=== PATIENT | female | born 1985 | race Caucasian/White ===

== ENCOUNTER 2018-11-27 17:44 | Observation (INO) | payer MEDICAID ==
[2018-11-27] MEDS ORDERED: NS 1,000 ML IV ONE (18:34)
[2018-11-27 18:38] LABS: PLATELET COUNT 149 10^3/uL (150-400)
--- NOTE | 2018-11-27 18:47 | EDPHY ---
H & P Stated Complaint: Mid sternal pain radiating to left arm for 4 hours. Time Seen by Provider: 11/27/18 18:31 HPI/ROS: CHIEF COMPLAINT: Chest pain HISTORY OF PRESENT ILLNESS: Patient is a 32-year-old female who comes to the emergency department complaining of midsternal chest pain for the last 4 hr. This summer she suffered a out of hospital cardiac arrest in the setting of methamphetamine abuse and had runs of ventricular fibrillation and suffered from ischemic brain injury. She spent several days in the ICU but eventually left the hospital AMA. A few weeks later she presented to a different hospital with chest pain and elevated troponin. She had a coronary artery catheterization at that time that revealed a left anterior descending coronary artery 99% occlusion likely a dissection as well as a diagonal artery 95% occlusion also likely a dissection. No stents were placed due to fear of worsening the dissection. She was placed on metoprolol, Plavix, aspirin and nitroglycerin. She is here in [place] now because she is at the [employer] [place]. She states that her pain began while at rest. No shortness of breath. No radiation. She does feel slightly nauseous. Severity: Moderate Modifying factors: None REVIEW OF SYSTEMS: Constitutional: denies: chills, fever, recent illness, recent injury EENTM: denies: blurred vision, double vision, nose congestion Respiratory: denies: cough, shortness of breath Cardiac: See HPI denies: irregular heart rate, lightheadedness, palpitations Gastrointestinal/Abdominal: denies: abdominal pain, diarrhea, nausea, vomiting, blood streaked stools Genitourinary: denies: dysuria, frequency, hematuria, pain Musculoskeletal: denies: joint pain, muscle pain Skin: denies: lesions, rash, jaundice, bruising Neurological: denies: headache, numbness, paresthesia, tingling, dizziness, weakness Hematologic/Lymphatic: denies: blood clots, easy bleeding, easy bruising Immunologic/allergic: denies: HIV/AIDS, transplant 10 systems reviewed and negative except as noted EXAM: GENERAL: Well-appearing, well-nourished and in no acute distress. HEAD: Atraumatic, normocephalic. EYES: Pupils equal round and reactive to light, extraocular movements intact, sclera anicteric, conjunctiva are normal. ENT: TMs normal, nares patent, oropharynx clear without exudates. Moist mucous membranes. NECK: Normal range of motion, supple without lymphadenopathy or JVD. LUNGS: Breath sounds clear to auscultation bilaterally and equal. No wheezes rales or rhonchi. HEART: Regular rate and rhythm without murmurs, rubs or gallops. ABDOMEN: Soft, nontender, normoactive bowel sounds. No guarding, no rebound. No masses appreciated. BACK: No CVA tenderness, no spinal tenderness, step-offs or deformities EXTREMITIES: Normal range of motion, no pitting or edema. No clubbing or cyanosis. NEUROLOGICAL: Cranial nerves II through XII grossly intact. Normal speech, normal gait. 5/5 strength, normal movement in all extremities, normal sensation , normal reflexes PSYCH: Normal mood, normal affect. SKIN: Warm, dry, normal turgor, no visible rashes or lesions. Source: Patient, Old records Exam Limitations: No limitations - Personal History Current Tetanus Diphtheria and Acellular Pertussis (TDAP): Yes - Medical/Surgical History Hx Asthma: No Hx Chronic Respiratory Disease: No Hx Diabetes: No Hx Cardiac Disease: Yes Hx Renal Disease: No Hx Cirrhosis: No Hx Alcoholism: No Hx HIV/AIDS: No Hx Splenectomy or Spleen Trauma: No Other PMH: - May 2018. - Family History Significant Family History: No pertinent family hx - Social History Smoking Status: Current every day smoker Alcohol Use: Sober Drug Use: Other Constitutional: Initial Vital Signs Temperature (C) 36.6 C 11/27/18 17:53 Heart Rate 87 11/27/18 17:53 Respiratory Rate 18 11/27/18 17:53 Blood Pressure 120/85 H 11/27/18 17:53 O2 Sat (%) 98 11/27/18 17:53 O2 Delivery Mode Room Air Allergies/Adverse Reactions: latex Allergy (Verified 11/27/18 17:57) morphine Allergy (Verified 11/27/18 19:51) Home Medications: Medication Instructions Recorded Aspirin EC [Aspirin EC 81 mg (*)] 81 mg PO DAILY 11/27/18 Clopidogrel Bisulfate [Plavix (*)] 75 mg PO DAILY 11/27/18 Metoprolol Tartrate [Lopressor 25 25 mg PO BID 11/27/18 mg (*)] Nitroglycerin [Nitrostat 0.4 mg 0.4 mg SL Q5M PRN 11/27/18 (*)] Pantoprazole Sodium [Protonix 40mg 40 mg PO DAILY 30 Days #30 tab 11/28/18 (*)] Medical Decision Making - Diagnostics EKG Interpretation: An EKG obtained and was read and documented in trace view. Please see trace view for full reading and report. Sinus rhythm, no acute ischemic changes Imaging: Discussed imaging studies w/ scalloper Radiologist ED Course/Re-evaluation: She states that she has not taken her aspirin and nitroglycerin today. Patient' s lab work is reassuring. Will admit for continued workup 7:30 p.m. discussed case with Dr. Licona who will admit. Have paged Cardiology as well. 7:33 p.m. I discussed the case Dr. Lonnie Francis who will consult. He agrees with the plan thus far. Differential Diagnosis: Partial list of the Differential diagnosis considered include but were not limited to; acute coronary disease, dissection, anxiety and although unlikely based on the history and physical exam, I also considered PE, pneumonia, pneumothorax, pericardial effusion. - Data Points Laboratory Results: Laboratory Results 11/27/18 18:25 11/27/18 18:25 Medications Given: Discontinued Medications Acetaminophen (Tylenol) 650 mg PO Q6HRS PRN PRN Reason: Pain, Mild/Fever, Can Take PO Stop: 05/26/19 20:00 Last Admin: 11/28/18 03:21 Dose: 650 mg Aspirin (Aspirin) 324 mg PO EDNOW ONE Stop: 11/27/18 19:16 Last Admin: 11/27/18 19:19 Dose: 324 mg Aspirin Buffered (Aspirin Ec) 81 mg PO DAILY [facility] Stop: 05/27/19 08:59 Last Admin: 11/28/18 08:39 Dose: 81 mg Clopidogrel Bisulfate (Plavix) 75 mg PO DAILY [facility] Stop: 05/27/19 08:59 Last Admin: 11/28/18 08:39 Dose: 75 mg Hydromorphone HCl (Dilaudid) 0.5 mg IVP EDNOW ONE Stop: 11/27/18 19:37 Last Admin: 11/27/18 19:42 Dose: 0.5 mg Hydromorphone HCl (Dilaudid) 0.2 - 0.4 mg IVP Q4H PRN PRN Reason: Pain, Severe Unable to Take PO Stop: 12/07/18 20:22 Last Admin: 11/28/18 12:02 Dose: 0.4 mg Sodium Chloride (Ns) 1,000 mls @ 0 mls/hr IV EDNOW ONE; Wide Open PRN Reason: Protocol Stop: 11/27/18 18:35 Last Admin: 11/27/18 18:57 Dose: 1,000 mls Metoprolol Tartrate (Lopressor) 25 mg PO BID [facility] Stop: 05/26/19 20:59 Last Admin: 11/28/18 08:39 Dose: 25 mg Nitroglycerin (Nitrostat) 0.4 mg SL Q5M PRN PRN Reason: Chest Pain Last Admin: 11/27/18 19:30 Dose: 0.4 mg Nitroglycerin (Nitrostat) 0.4 mg SL Q5M PRN PRN Reason: Chest Pain Stop: 05/26/19 20:00 Last Admin: 11/28/18 03:26 Dose: 0.4 mg Pantoprazole Sodium (Protonix) 40 mg PO DAILY [facility] Stop: 05/27/19 14:29 Last Admin: 11/28/18 14:44 Dose: 40 mg Promethazine HCl (Phenergan) 12.5 mg IVP EDNOW ONE Stop: 11/27/18 18:57 Last Admin: 11/27/18 18:58 Dose: 12.5 mg Promethazine HCl (Phenergan) 6.25 mg PO Q6HRS PRN PRN Reason: Nausea/Vomiting, Use 2nd Stop: 05/27/19 03:49 Last Admin: 11/28/18 04:29 Dose: 6.25 mg Point of Care Test Results: Chemistry 11/27/18 18:30 POC Troponin I 0.00 ng/mL ng/mL (0.00-0.08) Departure - Departure Disposition: [facility] Acute Clinical Impression: Chest pain Qualifiers: Chest pain type: unspecified Qualified Code(s): R07.9 - Chest pain, unspecified Condition: Good
[2018-11-27] MEDS ORDERED: PROMETHAZINE HCL 25 MG/ML INJ ONE (18:52)
[2018-11-27 18:53] LABS: INR 1.11 (0.83-1.16); PROTIME(PATIENT) 14.5 SEC (12.0-15.0)
--- NOTE | 2018-11-27 18:55 | CPEKG ---
Test Reason : OPEN Blood Pressure : / mmHG Vent. Rate : 063 BPM Atrial Rate : 061 BPM P-R Int : 122 ms QRS Dur : 082 ms QT Int : 407 ms P-R-T Axes : 076 056 049 degrees QTc Int : 417 ms Sinus rhythm Confirmed by Galileo Morrow ([id number]) on 11/27/2018 6:55:35 PM Referred By: PHYSICIAN ED Confirmed By:Galileo Morrow
[2018-11-27] MEDS ORDERED: PROMETHAZINE HCL 25 MG/ML INJ IVP ONE (18:56)
[2018-11-27] MEDS ORDERED: ASPIRIN 81 MG CHEWABLE TAB PO ONE (19:15)
[2018-11-27] MEDS: NITROGLYCERIN 0.4 MG BTL SL PRN ×3 (19:20→19:30)
[2018-11-27] MEDS ORDERED: HYDROmorphONE/DILAUDID 2 MG/ML INJ IVP ONE (19:36)
[2018-11-27] MEDS ORDERED: HYDROmorphONE/DILAUDID 1 MG/ML INJ ONE (19:39)
[2018-11-27] MEDS ORDERED: ACETAMINOPHEN 325 MG TAB PO PRN (20:01)
[2018-11-27] MEDS ORDERED: ONDANSETRON 4 MG/2 ML VIAL IVP PRN (20:01)
[2018-11-27] MEDS ORDERED: ONDANSETRON DISINTEGRATING 4 MG TAB PO PRN (20:01)
--- NOTE | 2018-11-27 20:34 | PDGENHP ---
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 Patient has been living in [place] and that is where she had her prior care but is currently living in [place] as [facility]. Reviewed summary of outpatient records with ER doctor, apparently in April patient suffered a VT or VF arrest, was resuscitated but was thought to have suffered an ischemic brain injury. She left that hospital AMA but was hospitalized again 2 weeks later with chest pain and underwent cardiac cath which revealed significant stenosis of the LAD and circumflex, apparently nearly 100% of both, thought to be 2/2 coronary artery dissection. There was a plan made at that point for medical management and patient has been on asa/plavix since then. She notes that she has had chest pain frequently since April, nearly every day. She is followed by a yard manager in [facility] and per patient he has not been sure why she is having chest pain. She notes that today the pain was severe and unrelenting, present at rest as well as with exertion and for that reason she came to the ER. She denies any other changes in her health recently. History Information - Allergies/Home Medication List Allergies/Adverse Reactions: latex Allergy (Verified 11/27/18 17:57) morphine Allergy (Verified 11/27/18 19:51) Home Medications: Aspirin EC [Aspirin EC 81 mg (*)] 81 mg PO DAILY 11/27/18 [Last Taken 11/26/18] Clopidogrel Bisulfate [Plavix (*)] 75 mg PO DAILY 11/27/18 [Last Taken 11/26/18] Metoprolol Tartrate [Lopressor 25 mg (*)] 25 mg PO BID 11/27/18 [Last Taken 21:00] Nitroglycerin [Nitrostat 0.4 mg (*)] 0.4 mg SL Q5M PRN 11/27/18 [Last Taken Unknown] I have personally reviewed and updated: family history, medical history, social history, surgical history - Past Medical History coronary artery disease (coronary artery dissection) Additional medical history: Cricket Danlos. VT/VF arrest - Surgical History Reports: hysterectomy Additional surgical history: 7 cleft palate surgeries. Kidney stone surgery - Family History Positive for: CAD, female first degree with premature CAD (2 sisters with MIs in their 30s), stroke (father with multiple strokes) - Social History Smoking Status: Current every day smoker Alcohol Use: Sober Drug Use: Other Additional social history: patient currently residing at the [facility], she has 8 children--2 who are adults, 1 being adopted and the other 5 in Foster care Review of Systems Review of Systems: ROS: 10pt was reviewed & negative except for what was stated in HPI & below Physical Exam Physical Exam: Temp Pulse Resp BP Pulse Ox 36.6 C 67 15 127/71 H 97 11/27/18 17:53 11/27/18 19:35 11/27/18 19:35 11/27/18 19:35 11/27/18 19:35 Constitutional: no apparent distress, unkempt Eyes: PERRL, anicteric sclera Ears, Nose, Mouth, Throat: moist mucous membranes, hearing normal Cardiovascular: regular rate and rhythym, no murmur, rub, or gallop, No edema Respiratory: no respiratory distress, no rales or rhonchi Gastrointestinal: normoactive bowel sounds, soft, non-tender abdomen Genitourinary: no bladder tenderness Skin: warm, normal color Musculoskeletal: full muscle strength Neurologic: AAOx3 Psychiatric: interacting appropriately, not anxious, not encephalopathic Lab Data & Imaging Review 11/27/18 18:25 11/27/18 18:25 WBC 4.89 10^3/uL (3.80-9.50) 11/27/18 18:25 RBC 4.39 10^6/uL (4.18-5.33) 11/27/18 18:25 Hgb 14.6 g/dL (12.6-16.3) 11/27/18 18:25 Hct 42.4 % (38.0-47.0) 11/27/18 18:25 MCV 96.6 fL (81.5-99.8) 11/27/18 18:25 MCH 33.3 pg (27.9-34.1) 11/27/18 18:25 MCHC 34.4 g/dL (32.4-36.7) 11/27/18 18:25 RDW 12.7 % (11.5-15.2) 11/27/18 18:25 Plt Count 149 10^3/uL (150-400) L 11/27/18 18: MPV 9.7 fL (8.7-11.7) 11/27/18 18: Neut % (Auto) 56.2 % (39.3-74.2) 11/27/18 18: Lymph % (Auto) 29.9 % (15.0-45.0) 11/27/18 18: Giles % (Auto) 10.4 % (4.5-13.0) 11/27/18 18: Eos % (Auto) 2.7 % (0.6-7.6) 11/27/18 18: Baso % (Auto) 0.6 % (0.3-1.7) 11/27/18: Nucleat RBC Rel Count 0.0 % (0.0-0.2) 11/27/18: Absolute Neuts (auto) 2.75 10^3/uL (1.70-6.50) 11/27/18 18: Absolute Lymphs (auto) 1.46 10^3/uL (1.00-3.00) 11/27/18 18: Absolute Monos (auto) 0.51 10^3/uL (0.30-0.80) 11/27/18 18: Absolute Eos (auto) 0.13 10^3/uL (0.03-0.40) 11/27/18: Absolute Basos (auto) 0.03 10^3/uL (0.02-0.10) 11/27/18: Absolute Nucleated RBC 0.00 10^3/uL (0-0.01) 11/27/18: Immature Gran % 0.2 % (0.0-1.1) 11/27/18: Immature Gran # 0.01 10^3/uL (0.00-0.10) 11/27/18: PT 14.5 SEC (12.0-15.0) 11/27/18 18: INR 1.11 (0.83-1.16) 11/27/18 18: APTT 31.0 SEC (23.0-38.0) 11/27/18: D-Dimer 0.30 ug/mLFEU (0.00-0.50) 11/27/18 18:25 Sodium 136 mEq/L (135-145) 11/27/18 18:25 Potassium 3.7 mEq/L (3.5-5.2) 11/27/18 18:25 Chloride 108 mEq/L (97-110) 11/27/18 18:25 Carbon Dioxide 22 mEq/l (22-31) 11/27/18 18:25 Anion Gap 6 mEq/L (6-14) 11/27/18 18:25 BUN 11 mg/dL (7-23) 11/27/18 18:25 Creatinine 0.8 mg/dL (0.6-1.0) 11/27/18 18:25 Estimated GFR > 60 11/27/18 18:25 Glucose 100 mg/dL (70-100) 11/27/18 18:25 Calcium 9.2 mg/dL (8.5-10.4) 11/27/18 18:25 POC Troponin I 0.00 ng/mL (0.00-0.08) 11/27/18 18:30 Visualized and Interpreted Chest x-ray results: Yes Chest X-Ray results: no infiltrate Visualized and Interpreted EKG results: Yes EKG Interpretation: Positive for: normal sinsus rhythm Assessment & Plan Assessment: Chest pain (Acute) 32 yo F with PMH of EDS and significant cardiac history including hx of cardiac arrest and coronary artery dissection pw chest pain # chest pain: concerning for unstable angina in this patient with hx of significant LAD and CX stenosis thought to be due to coronary artery dissection. Heart score of 6 with initial w/u non diagnostic including a negative trop. Cardiology has been consulted, plan for tonight will be tele monitoring, serial ecg, serial trops. May need cardiac cath in the am and query whether patient would benefit from CT surgery consult. Will get echo in am. # coronary artery dissection: with significant LAD and circ stenosis per outside records, as above # Cricket danlos syndrome:underlying risk for above # hx of ischemic brain injury # observation status Patient new to my care. Old records reviewed and summarized as above. Care plan reviewed with ER doctor as above.
[2018-11-27] MEDS: METOPROLOL TARTRATE 25 MG TAB PO SCH (20:58)
[2018-11-28] MEDS: NITROGLYCERIN 0.4 MG BTL SL PRN ×2 (03:20→03:26)
[2018-11-28] MEDS: HYDROmorphONE/DILAUDID 1 MG/ML INJ IVP PRN ×2 (03:35→12:02)
[2018-11-28] MEDS ORDERED: PROMETHAZINE HCL 25 MG TAB PO PRN (03:50)
[2018-11-28] MEDS: METOPROLOL TARTRATE 25 MG TAB PO SCH (08:39)
[2018-11-28] MEDS ORDERED: ASPIRIN 325 MG TAB PO SCH (09:00)
[2018-11-28] MEDS ORDERED: ASPIRIN EC 81 MG TAB PO SCH (09:00)
[2018-11-28] MEDS ORDERED: CLOPIDOGREL BISULFATE 75 MG TAB PO SCH (09:00)
[2018-11-28 11:57] VITALS: BP 106/61
[2018-11-28] MEDS ORDERED: NITROGLYCERIN 0.4 MG BTL SL PRN (14:23)
[2018-11-28] MEDS ORDERED: PANTOPRAZOLE SODIUM 40 MG TAB PO SCH (14:30)
--- NOTE | 2018-11-28 15:42 | ASMTDCNOTE ---
Case Management Discharge Discharge Order Complete? Answers: Yes Patient to Obtain Answers: Independently Medications Transportation Arranged Answers: Bus Tokens Discharge Comments Notes: 11/28/2018 Case Management Note Pt admitted for chest pain. Has previous stress test and chat from [facility] in [facility]. Pt is staying at the [facility]. Provided bus pass. Referral to [facility]. No further case management d/c needs identified. Date Signed: 11/28/2018 03:41 PM Electronically Signed By:Rachelle Urbano RN
--- NOTE | 2018-11-28 15:43 | ASDISCHSUM ---
Discharge Information Plan Status:Home with No Needs Medically Cleared to Leave:11/27/2018 Discharge Date:11/28/2018 03:27 PM CM D/C Disposition:Home, Routine, Self-Care ADT D/C Disposition:Home, Routine, Self-Care Projected Discharge Date:11/28/2018 03:27 PM Transportation at D/C:Bus Ticket Discharge Delay Reason: Follow-Up Date:11/28/2018 03:27 PM Discharge Slot: Final Diagnosis: Placement Information Patient Contact Information Contact Name:DAYANARA Relationship: Address: Home Phone: Work Phone: City: Alternate Phone: State/Zip Code: Email: Financial Information Financial Class:Medicaid Primary Plan Desc:[employer] [place] Primary Plan Number:[id number] Secondary Plan Desc: Secondary Plan Number: Assessment Information LACE LACE Length of stay for Answers: Less than 1 day current admission Acuity / Level of Answers: No Care: Did the patient have an inpatient admission? Comorbidities - select Answers: Coronary Artery Disease all that apply Previous myocardial infarction Other Notes: Cricket Danlos syndrome # of Emergency department Answers: 1-2 visits in the last 6 months Social determinants Answers: History of substance abuse (ETOH, street drugs, prescription drugs, etc.) Score: 8 Date Signed: 11/28/2018 03:42 PM Electronically Signed By:Rachelle Urbano RN Case Management Discharge Plan Note Case Management Discharge Discharge Order Complete? Answers: Yes Patient to Obtain Answers: Independently Medications Transportation Arranged Answers: Bus Tokens Discharge Comments Notes: 11/28/2018 Case Management Note Pt admitted for chest pain. Has previous stress test and chat from [facility] in [facility]. Pt is staying at the [facility]. Provided bus pass. Referral to [facility]. No further case management d/c needs identified. Date Signed: 11/28/2018 03:41 PM Electronically Signed By:Rachelle Urbano RN Intervention Information Intervention Type:Bus Pass Date of Service:11/28/2018 03:42 PM Patient Type:Observation Staff Member:EDNA Urbano, Rachelle Hours: Discipline: Severity: Comment:
--- NOTE | 2018-11-28 17:44 | CPEKG ---
Test Reason : OPEN Blood Pressure : / mmHG Vent. Rate : 062 BPM Atrial Rate : 063 BPM P-R Int : 127 ms QRS Dur : 091 ms QT Int : 434 ms P-R-T Axes : 076 071 054 degrees QTc Int : 441 ms Sinus rhythm Borderline T abnormalities, anterior leads Confirmed by Nithya Hodges ([id number]) on 11/28/2018 5:44:31 PM Referred By: Claudia Gramajo Confirmed By:Nithya Hodges
--- NOTE | 2018-11-28 19:19 | GCON ---
CARDIOLOGY CONSULTATION INDICATION FOR CARDIOLOGY CONSULTATION: Chest pain with history of coronary artery dissection. HISTORY OF PRESENT ILLNESS: Mrs Cavazos is a pleasant 33-year-old female who is from [place] who has recently been placed in a woman's senior care in [place]. 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 During her VT VF arrest she was resuscitated successfully, but did have a mild ischemic brain injury. This was at [facility] in [place]. Before a total workup could be completed, she did leave AMA. Two weeks later, she returned to [facility] in [place] for re- evaluation for ongoing chest pressure. She did undergo cardiac catheterization at that time. It did show spontaneous coronary artery dissection. Reviewing her catheterization records, it was noted that she had a 99% stenosis in the LAD with a 95 mid stenosis of her diagonal branch. She did have MAXIMILIAN-3 flow, and it was plan to not treat these dissections with stenting, but with medical management. Her primary data management associate in [place] is Dr. Bush who has been managing her since then. She reports she has had multiple admissions since her cardiac catheterization for ongoing chronic chest pain. Most recently in [place] October in which she was discharged on October 19. She informs me today that she has recently from her . She did contact the domestic violence hotline and who found her a senior care in [place]. She has been residing here for 1 week. She states that she has been dealing with an upper respiratory infection, for the last few weeks, but mostly has been in her normal state of health. She does report that she has ongoing variation of spontaneous chest pressure, reporting midsternal, occasionally radiating out to her left chest wall since her initial event.. She does not have this with exertion. She reports that the pain that she has been having is the same pain that she has had, but feels that potentially may have worsened over last 1-2 days. She did see did the nurse at her senior care who asked her to be evaluated by a primary care physician in our community. When seen by the physician, she was recommended to come to the hospital for further evaluation. Upon arrival to our hospital, she was continuing to have the same pain. Electrocardiogram was done, which noted sinus rhythm, normal axis, with no significant ST or T-wave abnormalities. Her initial laboratory studies were drawn, which noted to have a normal troponin of 0.00. She has been admitted to our PCU floor for further evaluation. Upon my examination today, she has had 2 other repeated troponin levels, which have been both within normal limits. Repeated electrocardiogram done 2 hours post her initial visit showed no significant change. She reports she has chronic mid lower chest pressure, she states this is consistent for last 6 months. She does state at certain times, it does become more intense, and she did notice more intensity yesterday. At the time of my examination, she reports it is at its "normal state", ranking it 2/10. She does occasionally get associated shortness of breath and occasional nausea, but denies any diaphoresis. She reports no orthopnea, PND, palpitations, lightheadedness, near- syncope, or syncopal events. Reports no symptoms suggestive of TIA or CVA. She does state that she has been compliant with her anti-platelet therapy of aspirin and clopidogrel, denies of any bleeding episodes. She also states that she has been taking her metoprolol. She has been under significant family stress due to recent separation with her . She has also been dealing with an upper respiratory infection, but reports no fevers chills, or night sweats. She has had no other significant health history. She denies of any other significant health problems, recent health problems. 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 PAST SURGICAL HISTORY: Cleft palate surgery, kidney stones, and hysterectomy. FAMILY HISTORY: Patient does report family history of CAD at early onset stating 2 sisters had MIs in their 30s. Father with history of multiple strokes. SOCIAL HISTORY: She is a current smoker. She denies any alcohol use. She currently is not working. She has recently from her residing in a woman's senior care here in [place]. She has 8 children, 2 are adults, which she reports are healthy , 1 was adopted by another family member, and 5 that are in foster care. ALLERGIES: Listed allergies to latex. HOME MEDICATIONS: Nitrostat 4 mg sublingual q.5 minutes p.r.n., metoprolol 25 mg p.o. b.i.d., aspirin 81 mg p.o. daily clopidogrel 75 mg p.o. daily, Protonix 40 mg p.o. REVIEW OF SYSTEMS: A 10-point review of systems done on this patient all negative, except as mentioned above. PHYSICAL EXAMINATION: GENERAL APPEARANCE: Thin, well-groomed female. She is alert and oriented to person, place, time, and situation. Appears to be under no acute distress. VITAL SIGNS: Current: Blood pressure 106/61 heart rate of 58, sinus rhythm on the monitor, respirations 16, saturating 97% on room air , temperature 36.3 degrees Celsius. HEENT: Head is normocephalic. Lips and tongue are pink and moist without signs of cyanosis. NECK: Trachea is midline, + 2 carotid pulses bilateral. No auscultated bruits. No jugular vein distention. RESPIRATORY: Lungs are clear to auscultation. No rhonchi, rales or wheezing noted. No accessory muscle use. No intercostal muscle retraction noted. CARDIAC : Regular rate, regular rhythm, S1, S2. No S3, S4, gallops rubs or murmurs noted. ABDOMEN: Soft, nontender. Bowel sounds x4 quadrants. No organomegaly. No palpable masses. SKIN: [place], warm, dry. No cyanosis, no clubbing, no peripheral edema. VASCULAR: +2 radials bilateral, +2 carotids bilateral, +1 dorsal pedal and posterior tibial pulses bilateral. LABORATORY/IMAGING: Drawn on admission show WBC 4.89, hemoglobin of 14.6, hematocrit of 42.4, platelet count of 149. INR of 1.11. D-dimer of 0.30. Sodium 136, potassium 3.7, chloride 108, CO2 22, BUN 11, creatinine 0.8, glucose 100, calcium 9.2. Troponin of 0.00. Note, patient has had 2 other troponin levels drawn since admission that have both been less than 0.012. Electrocardiogram showing sinus rhythm, normal axis, with no significant ST or T -wave abnormalities. Chest x-ray showing no acute cardiopulmonary process. Note, I have reviewed patient's previous medical records in [facility] noting that she had an echocardiogram done on August 29, 2018, which noted normal LV size and systolic function with EF of 57%, mild LA enlargement, mild MR and mild TR, with borderline pulmonary hypertension. Patient also underwent nuclear stress test at [facility] on October 18, 2018, which showed no signs of ischemia or infarction. Echocardiogram done today showing LV upper limits of normal, no LVH, normal LV systolic function, with no wall motion abnormalities, EF estimated between 55% and 60%, mild MR, mild TR, no pericardial effusion. ASSESSMENT/PLAN: 1. Chest pressure: Patient reports ongoing chronic chest pain since April, does report slightly worsening over the last day, but has returned back to its baseline. Mostly is unchanged over the last 6 months. She is noted to have a normal electrocardiogram, with no ST or T-wave abnormalities suggesting of ischemia. She has had 3 troponins that are within normal limits. Echocardiogram showed normal left ventricular systolic function with no wall motion abnormalities done today. She is noted to have a recent MPI study done within the last month, which showed no signs of ischemia infarction. At this time, with her her chest pressure is unchanged over last 6 months. Negative troponins x3, EKG which shows no ischemia, recent MPI study showing no signs of ischemia or infarction, and echocardiogram done today noting normal wall motion , there is no indication of recurrence of coronary artery dissection. I have recommended that she continue her current anti-platelet therapy of aspirin and clopidogrel. She will remain on current dose of beta-fracisco. She does have p.r.n. Sublingual nitroglycerin. Also, because her chest pressure is very atypical for cardiac ischemia, I have recommended consideration of starting her on a proton pump inhibitor of Protonix. 2. History of spontaneous coronary artery dissection: Patient with history of spontaneous coronary artery dissection, which potentially cause ventricular fibrillation arrest in April. Recent MPI study showing no ischemia. She remains on dual anti-platelet, aspirin, and clopidogrel. She remains on metoprolol tartrate. She has sublingual nitroglycerin to use as needed. 3. History of VT/VF arrest: Patient has maintained sinus rhythm. Electrolytes within normal limits. No arrhythmias noted during this hospitalization. Continue on home dose metoprolol. 4. History of Cricket-Danlos syndrome. Underlying risk as above. 5. History of ischemic brain injury: Induced ventricular fibrillation arrest. Function neural is within intact. Patient is planning to be discharged. I have scheduled her for a followup visit with our practice within a week. The patient is uncertain if she will be staying in the [place] area. If she does not, I have recommended that she follow up with her primary data management associate in [place], Dr. Bush. Patient has been told that if symptoms recur or if symptoms worsen, she is to return to the hospital or seek medical attention immediately. /[id number]/MODL and [id number]/MODL MTDD
--- NOTE | 2018-11-28 19:28 | PDDCSUM ---
Discharge Summary Discharge Summary: Natalie Batista is a 33 year old female with pmh of nicole danlos, aortic dissection, cad, tobacco abuse, who presented with chest pain. she has an extensive cardiac history which has mostly been evaluated at [facility] in [place]. While here her troponins were negative, and her ECG had no acute ST/T wave changes. Cardiology was consulted and an echocardiogram were obtained. The Echo showed normal LVEF and no RWMA. Her chart from [place] was reviewed and it showed that she had a stress test in October, just a month ago which was normal. Her chest pain had resolved as well on day 2 of her hospitalization. Given that she had just had a normal stress test, she was discharged home to follow up with her PCP and cardiology as an outpatient Discharge Diagnosis- chest pain nicole Danlos -hx of ascending aortic dissection Follow up PCP Cardiology here in [place] in one week New meds PPI Over 35 minutes was spent on the discharge of this patinet including dc planning , setting up FU appts and discussing plans with patient and family.
== END 2018-11-28 15:27 | disposition home or self-care (01) ==
LOC: EEVIPCON 19:16 → F2W 20:09
PROVIDERS: ADMIT Internal Medicine; ATTEND Internal Medicine
DX: R07.9 Chest pain, unspecified (principal); Q79.6 Ehlers-Danlos syndromes; I71.01 Dissection of thoracic aorta; Z87.820 Personal history of traumatic brain injury; Z72.0 Tobacco use
CPT/HCPCS: 71046; 93005; 96361; 96374; 96375; 96376; 99285; G0378; 84484-ER; J1170; J2550